=== PATIENT | female | born 1940 | race Caucasian/White ===

== ENCOUNTER 2016-09-26 00:21 | Emergency (ER) | payer OTHER, MEDICARE ==
[~2016-09-26] VITALS: Ht 160 cm; Wt 82.6 kg
[~2016-09-26 00:21] MED LIST: ASPIR-LOW81 MG PO; AUGMENTIN875 MG PO; CENTRUM SILVER1 EAC3 PO; CRESTOR10 MG PO; HYDROCODON-ACE1 EAC7 PO; LOSARTAN-HCTZ1 EAC2 PO; METOPROLOL SUCC50 MG PO; OS-CAL 500+D T1 EAC1 PO
[2016-09-26] MEDS ORDERED: METOPROLOL SUC100 MG PO (00:26)
[2016-09-26] MEDS ORDERED: HYZAAR 100-21 TABLET PO (00:26)
[2016-09-26] MEDS ORDERED: TYLENOL WITH C1 EACH PO (00:27)
[2016-09-26] MEDS ORDERED: CRESTOR10 MG PO (00:27)
[2016-09-26] MEDS ORDERED: BREO ELLIPTA 21 EACH IH (00:27)
[2016-09-26] MEDS ORDERED: ALLERGY RELIE15.8 ML BOTH NARES (00:28)
[2016-09-26] MEDS ORDERED: DAILY VALUE1 EACH PO (00:29)
[2016-09-26] MEDS ORDERED: ZANTAC300 MG PO (00:29)
[2016-09-26] MEDS ORDERED: ASPIRIN81 M2 PO (00:29)
[2016-09-26 01:29] LABS: HEMATOCRIT 34.4 % (36.0-46.0); MCH 30.4 PG (29.0-34.0); MCHC 34.3 G/DL (30.0-36.0); MCV 88.7 FL (83-99); MEAN PLAT.VOLUME 8.9 uM^3 (9.5-12.4); PLATELET COUNT 245 K/uL (156-360); RBC DIS.WIDTH-CV 12.8 % (11.8-14.6); RBC DIS.WIDTH-SD 41.6 % (39-53); RED BLOOD COUNT 3.88 M/uL (3.80-5.20); WHITE BLOOD COUNT 12.7 K/uL (4.1-10.2)
[2016-09-26 01:42] LABS: CHLORIDE 98 mEq/L (99-109); POTASSIUM 3.3 mEq/L (3.7-5.4); SODIUM 135 mEq/L (136-147)
[2016-09-26 01:45] LABS: GLUCOSE 109 mg/dL (70-99)
[2016-09-26 01:46] LABS: ANION GAP 12 MEQ/L (2-14); TOTAL BILIRUBIN 0.8 mg/dL (0.0-1.0)
[2016-09-26 01:48] LABS: ALKALINE PHOSPHATASE 42 IU/L (3-129); GFR ESTIMATE (CALCULATED) > 59 mL/min/
[2016-09-26 01:49] LABS: UREA NITROGEN (BUN) 15 mg/dL (9-23)
[2016-09-26 01:50] LABS: TROP-I INTERPRETATION NEGATIVE; TROPONIN-I < 0.01 ng/mL (0.0-0.30)
[2016-09-26 01:52] LABS: LIPASE 21 U/L (1.0-51.0)
[2016-09-26] MEDS ORDERED: BENTYL20 MG PO (04:13)
[2016-09-26 05:02] VITALS: BP 122/64
== END 2016-09-26 05:02 | disposition home or self-care (01) ==
LOC: EME 00:21
PROVIDERS: Emergency Medicine
DX: K52.9 Noninfective gastroenteritis and colitis, unspecified (principal); R11.2 Nausea with vomiting, unspecified; E87.6 Hypokalemia; I10 Essential (primary) hypertension; E78.5 Hyperlipidemia, unspecified
CPT/HCPCS: 74177; 80053; 81003; 83605; 83690; 84484; 85027; 93005; 99281; 99285; J2270; J2405; J7030